=== PATIENT | male | born 1995 | race Caucasian/White ===

== ENCOUNTER 2017-10-25 13:48 | Emergency (ER) | payer OTHER ==
[~2017-10-25] VITALS: Ht 188 cm; Wt 88.0 kg
[2017-10-25 13:49] VITALS: TEMP 37.4; Ht 188 cm; Wt 88.0 kg
--- NOTE | 2017-10-25 14:30 | EMERGENCY ROOM VISIT NOTE ---
History Report prepared by Iraj: Deacon Urena Under the Supervision of: Dr. Travis Mejia M.D. First contact with patient: 13:53 Chief Complaint: MENTAL HEALTH EVALUATION Stated Complaint: MENTAL HEALTH EVALUATION History of Present Illness The patient is a 21 year old white male with a past medical history of anxiety/ depression, who presents to the Emergency Room with concerns over worsening suicidal thoughts over the past two months. He states that these thoughts occur almost daily. When the symptoms first onset the thoughts were definitely every day, but now they are slightly more spread out. He notes that he felt a little "weird" around the start of this past semester. He admits to feeling slightly overwhelmed with his classes, even though he did have that much work to do at that point. He admitted that his scared him slightly. The patient does note having a history of anxiety and depression issues since high school. He denies any suicidal/homicidal thoughts, or hallucinations. He does admit to smoking weed roughly 4 days ago. Per the Psychiatric manager beauty, she spoke with [employer] who note that the patient will schedule dates to hang himself. He will then move these dates based off of if he does or does not achieve his goals. The patient did mention one instance when he was in high school when he was having a "really really bad day." On this episode he allowed himself to fall violently to the floor and hit his head off of the ground. He gave himself a concussion. The patient denies any chest pain, abdominal pain, or lower extremity swelling. Source of History: patient, other (Psych Business Analysis Professional) Onset: 2 months Quality: other (Suicidal ideation) Timing: worsening Associated Symptoms: No chest pain, No abdominal pain Review of Systems See HPI for pertinent positives and negatives. A total of ten systems were reviewed and were otherwise negative. Past Medical & Surgical Hx of anxiety and depression Social History Smoking Status: Never Smoker Marital Status: single Housing Status: lives with roommate Occupation Status: [employer] student Current/Historical Medications Scheduled Amphetamine-Dextroamphetamine 25MG (Adderall Xr 25MG), 50 MG PO QAM Bupropion (Wellbutrin-Xl), 300 MG PO QAM Escitalopram Oxalate (Lexapro), 20 MG PO DAILY Zolpidem Tartrate (Ambien), 10 MG PO HS Allergies Coded Allergies: No Known Allergies (Unverified , 10/25/17) Physical Exam Vital Signs Date Time Temp Pulse Resp B/P (MAP) Pulse Ox O2 Delivery O2 Flow Rate FiO2 10/25/17 19:33 73 16 146/91 98 Room Air 10/25/17 18:18 84 148/77 98 Room Air 10/25/17 13:49 37.4 75 18 172/96 98 Room Air Physical Exam GENERAL: Awake, alert, well-appearing, NAD HENT: Normocephalic, atraumatic. EYES: Normal conjunctiva. Sclera non-icteric. NECK: Supple. No nuchal rigidity. FROM. RESPIRATORY: CTAB, no rhonchi, wheezing, crackles CARDIAC: RRR, no MRG ABDOMEN: Soft, NTND, BS+ MSK: No chest wall TTP, no LE edema NEURO: GCS 15, CN 2-12 intact, moves all 4s on command SKIN: No rash or jaundice noted. PSYCH: Cooperative, depressed mood, good eye contact. Medical Decision & Procedures Laboratory Results 10/25/17 14:42 Red Blood Count 4.75, Mean Corpuscular Volume 86.9, Mean Corpuscular Hemoglobin 31.2, Mean Corpuscular Hemoglobin Concent 35.8, Mean Platelet Volume 9.3, Neutrophils (%) (Auto) 72.0, Lymphocytes (%) (Auto) 20.5, Monocytes (%) (Auto) 6.5, Eosinophils (%) (Auto) 0.4, Basophils (%) (Auto) 0.5, Neutrophils # (Auto) 6.67, Lymphocytes # (Auto) 1.90, Monocytes # (Auto) 0.60, Eosinophils # (Auto) 0.04, Basophils # (Auto) 0.05 10/25/17 14:42 Test 10/25/17 14:06 10/25/17 14:42 Urine Color YELLOW Urine Appearance CLEAR (CLEAR) Urine pH 6.5 (4.5-7.5) Urine Specific [place] 1.023 (1.000-1.030) Urine Protein NEG (NEG) Urine Glucose (UA) NEG (NEG) Urine Ketones NEG (NEG) Urine Occult Blood NEG (NEG) Urine Nitrite NEG (NEG) Urine Bilirubin NEG (NEG) Urine Urobilinogen NEG (NEG) Urine Leukocyte Esterase NEG (NEG) Urine Opiates Screen NEG (NEG) Urine Methadone, Qualitative NEG (NEG) Urine Barbiturates NEG (NEG) Urine Phencyclidine (PCP) Level NEG (NEG) Ur Amphetamine/Methamphetamine POS (NEG) MDMA (Ecstasy) Screen POS (NEG) Urine Benzodiazepines Screen NEG (NEG) Urine Cocaine Metabolite NEG (NEG) Urine Marijuana (THC) POS (NEG) White Blood Count 9.27 K/uL (4.8-10.8) Red Blood Count 4.75 M/uL (4.7-6.1) Hemoglobin 14.8 g/dL (14.0-18.0) Hematocrit 41.3 % (42-52) Mean Corpuscular Volume 86.9 fL (80-100) Mean Corpuscular Hemoglobin 31.2 pg (25-34) Mean Corpuscular Hemoglobin Concent 35.8 g/dl (32-36) Platelet Count 241 K/uL (130-400) Mean Platelet Volume 9.3 fL (7.4-10.4) Neutrophils (%) (Auto) 72.0 % Lymphocytes (%) (Auto) 20.5 % Monocytes (%) (Auto) 6.5 % Eosinophils (%) (Auto) 0.4 % Basophils (%) (Auto) 0.5 % Neutrophils # (Auto) 6.67 K/uL (1.4-6.5) Lymphocytes # (Auto) 1.90 K/uL (1.2-3.4) Monocytes # (Auto) 0.60 K/uL (0.11-0.59) Eosinophils # (Auto) 0.04 K/uL (0-0.5) Basophils # (Auto) 0.05 K/uL (0-0.2) RDW Standard Deviation 42.9 fL (36.4-46.3) RDW Coefficient of Variation 13.4 % (11.5-14.5) Immature Granulocyte % (Auto) 0.1 % Immature Granulocyte # (Auto) 0.01 K/uL (0.00-0.02) Anion Gap 6.0 mmol/L (3-11) Est Creatinine Clear Calc Drug Dose 134.6 ml/min Estimated GFR () 122.7 Estimated GFR (Non- 105.8 BUN/Creatinine Ratio 15.1 (10-20) Calcium Level 8.9 mg/dl (8.5-10.1) Total Bilirubin 0.8 mg/dl (0.2-1) Direct Bilirubin 0.2 mg/dl (0-0.2) Aspartate Amino Transf (AST/SGOT) 17 U/L (15-37) Alanine Aminotransferase (ALT/SGPT) 22 U/L (12-78) Alkaline Phosphatase 69 U/L (45-117) Total Protein 7.3 gm/dl (6.4-8.2) Albumin 4.3 gm/dl (3.4-5.0) Thyroid Stimulating Hormone (TSH) 0.758 uIu/ml (0.300-4.500) Ethyl Alcohol mg/dL < 3.0 mg/dl (0-3) Laboratory results reviewed by me ED Course 1421: The patient was evaluated in room A8. A complete history and physical exam was performed. 1704: The patient has agreed to admit himself voluntarily at this time, per the Psychiatric Fiberglass Autobody Repairer. 1826: The Psychiatric Fiberglass Autobody Repairer has informed me that the patient no longer wants to stay as an inpatient. He is adamant that he is safe. He claims that his mother is coming to the hospital now. 192: The patient's mother has arrived at this time. She states that she will set-up a safety plan and take the patient back home to [place] with her. She will set up an appointment to see Dr. Rodrigez - who normally evaluates his psych issues. The patient will be discharged home with the mother. Medical Decision The patient is a 21 year old white male with a past medical history of anxiety/ depression, who presents to the Emergency Room with concerns over worsening suicidal thoughts over the past two months. He states that these thoughts occur almost daily Differential diagnosis: Etiologies such as mood disorder, infection, hypoglycemia, electrolyte abnormalities, cardiac sources, intracerebral event, toxicologic, neurologic, as well as others were entertained. Patient was seen and evaluated at the bedside. Patient was referred from. There was concern for suicidal. Patient did have blood work completed. Patient was medically clear. Patient's UDS did test positive for THC which she admitted to as well as methamphetamines and MDMA. The patient does take Adderall which is likely the reason for the positive methamphetamines. A long discussion was had with the patient as well as with the outpatient mental health specialist as well as the psych assistant case manager here. The mother is able to present here. Given that apparently he does have chronic suicidal ideation that is passive he has had no recent history of any thoughts with possible plan was deemed suitable for outpatient follow-up and treatment at this time as he is able to be watched by his mother of the next several days. Within the meantime he is to follow-up with his mental health specialist. Patient was given strict follow-up, discharge, and return precautions. All questions were answered. Patient was deemed suitable for outpatient follow-up at this time. Patient agreed with the plan of care and was safely discharged home. Impression Primary Impression: Suicidal ideation Scribe Attestation The scribe's documentation has been prepared under my direction and personally reviewed by me in its entirety. I confirm that the note above accurately reflects all work, treatment, procedures, and medical decision making performed by me. Departure Information Dispostion Home / Self-Care Referrals No Doctor, Assigned (PCP) Patient Instructions My [facility], Suicide Warning Signs Self, Suicide Warning Signs What Do Additional Instructions Please return to the emergency department if you have worsening or recurrent symptoms not amenable to at-home treatment. Please call for a follow-up appointment with her primary care physician. Please take your medications as prescribed. If you have other concerns and/or complaints please feel free to also call your primary care physician's office or return the ED for further evaluation, management, and treatment. Please follow-up with your primary mental health specialist. Please return if you have any worsening symptoms. Take your medications as prescribed. You have been examined and treated today on an emergency basis only. This is not a substitute for, or an effort to provide, complete comprehensive medical care. It is impossible to recognize and treat all injuries or illnesses in a single emergency department visit. It is therefore important that you follow up closely with [facility], your PCP, and/or your specialist(s). Call as soon as possible for an appointment. Thank you for your time and consideration. I look forward to speaking with you again soon. Please don't hesitate to call us if you have any questions.
[2017-10-25 15:00] LABS: BASO % 0.5 %; BASO ABS # 0.05 K/uL (0-0.2); EOS % 0.4 %; EOS ABS # 0.04 K/uL (0-0.5); HEMATOCRIT 41.3 % (42-52); HEMOGLOBIN 14.8 g/dL (14.0-18.0); IG# 0.01 K/uL (0.00-0.02); LYMPH % 20.5 %; MEAN CELL VOLUME 86.9 fL (80-100); MEAN CORPUSCULAR HEMOGLOBIN 31.2 pg (25-34); MEAN CORPUSCULAR HGB CONC 35.8 g/dl (32-36); MEAN PLATELET VOLUME 9.3 fL (7.4-10.4); MONO % 6.5 %; NEUT ABS # 6.67 K/uL (1.4-6.5); PLATELET COUNT 241 K/uL (130-400); RED CELL DISTRIBUTION WIDTH CV 13.4 % (11.5-14.5); RED CELL DISTRIBUTION WIDTH SD 42.9 fL (36.4-46.3); WHITE BLOOD COUNT 9.27 K/uL (4.8-10.8)
[2017-10-25 15:17] LABS: ALBUMIN 4.3 gm/dl (3.4-5.0); CALCIUM 8.9 mg/dl (8.5-10.1); CREATININE 1.01 mg/dl (0.60-1.40); POTASSIUM 3.6 mmol/L (3.5-5.1)
[2017-10-25] MEDS ORDERED: ESCI1TAB10 PO (15:24)
[2017-10-25] MEDS ORDERED: ZOLP10TA PO (15:24)
[2017-10-25] MEDS ORDERED: AMPH25CA PO (15:24)
[2017-10-25] MEDS ORDERED: BUPRTAB51 PO (15:24)
[2017-10-25 15:33] LABS: TOTAL PROTEIN 7.3 gm/dl (6.4-8.2)
[2017-10-25 19:33] VITALS: BP 146/91; PULSE 73; O2SAT 98
== END 2017-10-25 19:53 | disposition home or self-care (01) ==
LOC: C.EDB 13:49 → C.EDA 19:53
DX: R45.851 Suicidal ideations (principal)